=== PATIENT | female | born 1995 | race Caucasian/White ===

== ENCOUNTER 2020-05-02 16:48 | Emergency (ER) | payer OTHER, SELFPAY ==
--- NOTE | ~2020-05-02 | CT_ITS ---
EXAMINATION: CT abdomen pelvis w con EXAM DATE: 05/02/2020 18:58 INDICATION: Abdominal pain, nausea and vomiting. TECHNIQUE: Spiral CT of the abdomen and pelvis was performed following intravenous injection of 100 m L Omnipaque 350. Axial, coronal and sagittal images were reviewed. The dose-length product (DLP) fo r this examination was 194.71 mGy-cm. The exposure was tailored according to patient size (auto mA e xposure control), and iterative reconstruction (ASIR) was used as additional dose reduction technique . There is no prior study for comparison. FINDINGS: The liver, spleen, adrenal glands and pancreas are unremarkable. Gallbladder is unremarkab le. No biliary obstruction. Portal and splenic veins are patent. Kidneys enhance symmetrically. T here is no hydronephrosis. The uterus is unremarkable. The bladder is unremarkable. There is no retroperitoneal or pelvic lymphadenopathy. The appendix is not positively visualized. There is no pericecal inflammatory change to suggest appe ndicitis. The stomach and small bowel are unremarkable. There is colonic fluid, correlate for diar jimmie. No free intraperitoneal gas. The heart is normal in size. There are no pericardial or pleu ral effusions. The lung bases are unremarkable. Mild lumbar levoscoliosis. IMPRESSION: Colonic fluid, correlate for diarrhea. Reviewed, dictated and finalized at location [facility].
[2020-05-02 16:54] VITALS: BP 129/85; PULSE 120; RESP 19; TEMP 36.4; O2SAT 97
[2020-05-02 17:09] LABS: Basophils Percent Auto 0.2 % (0.2-1.2); Eosinophils Absolute Auto 0.4 K/mm3 (0-0.3); Eosinophils Percent Auto 2.8 % (0-4.4); Hematocrit 42.8 % (37.0-47.0); Hemoglobin 14.3 g/dL (12.0-15.0); Immature Granulocyte Absolute 0.05 K/mm3 (0.00-0.031); Immature Granulocyte Percent A 0.4 % (0-0.5); Lymphocytes Absolute Auto 1.49 K/mm3 (0.9-3.2); Lymphocytes Percent Auto 11.5 % (18.3-44.2); Mean Corpuscular HGB Conc 33.4 g/dl (32-36); Mean Corpuscular Hemoglobin 30.1 pg (26-34); Mean Corpuscular Volume 90.1 fl (80-100); Monocytes Absolute Auto 0.7 K/mm3 (0.1-0.6); Monocytes Percent Auto 5.7 % (2.6-8.5); Neutrophils Absolute Auto 10.3 K/mm3 (1.3-6.7); Neutrophils Percent Auto 79.4 % (45.5-73.1); Platelet Count Result 252 k/mm3 (150-375); Red Blood Count 4.75 M/mm3 (4.2-5.4); Red Cell Distribution Width 12.5 % (11.5-14.5)
[2020-05-02 17:15] LABS: Add Urine Microscopic? YES; Appearance Urine Cloudy (Clear); Bacteria Urine Trace /hpf; Bilirubin Urine Negative (Negative); Blood Urine Negative (Negative); Color Urine Yellow (Yellow); Glucose Urine UA Negative (Negative); Ketones Urine 2+ mg/dL (Negative); Leukocyte Esterase Ur 2+ LEU/UL (Negative); Mucus Urine Heavy /lpf; Nitrate Urine Negative (Negative); Protein Urine 2+ mg/dL (Negative); Squamous Epithelial Cell Urine Many /hpf (Few); Urobilinogen Urine Negative mg/dL (<2.0)
[2020-05-02 17:21] LABS: Alanine Aminotransferase 16 U/L (4-35); Albumin Level 4.8 g/dL (3.5-5.1); Alkaline Phosphatase 72 U/L (38-126); Anion Gap 11 mmol/L (8-16); Aspartate Amino Transferase 27 U/L (14-36); Bilirubin,Total 0.4 mg/dL (0.2-1.3); Blood Urea Nitrogen 11 mg/dL (7-17); Calcium 9.5 mg/dL (8.4-10.2); Carbon Dioxide 24 mmol/L (22-30); Chloride 103 mmol/L (98-107); Estimated CRCL calculation 86 ml/min; Estimated Glomerular Filt Rate > 60; Glucose 117 mg/dL (65-105); Lipase 40 U/L (23-300); Potassium 3.7 mmol/L (3.4-5.0); Sodium 138 mmol/L (137-145)
--- NOTE | 2020-05-02 17:58 | ED.NAVMDI ---
HPI - Nausea/Vomiting/Diarrhea General Chief complaint: Nausea/Vomiting/Diarrhea Stated complaint: vomiting Time Seen by Provider: 05/02/20 17:57 Source: patient and family Mode of arrival: ambulatory Limitations: no limitations History of Present Illness HPI Narrative: 25 years old white female presents with vomiting started last night x2. Went to sleep woke up at 10 AM with frequent diarrhea about 2-3 times. Then restarted vomiting again up to 6 times. Currently complaining of mid abdominal pain. History of IBS. Patient denies any fever, chills or exposure to anybody have similar symptoms. Related Data Home Medications Medication Instructions Recorded Confirmed norgestimate-ethinyl estradiol tablet 05/02/20 [Estarylla] venlafaxine mg PO 05/02/20 Allergies Allergy/AdvReac Type Severity Reaction Status Date / Time aspirin Allergy Unknown N/V, Verified 05/02/20 17:02 MIGRAINE cefaclor Allergy Unknown unknown Verified 05/02/20 17:02 oseltamivir AdvReac Severe vomiting Verified 05/02/20 17:02 acetaminophen AdvReac Unknown Liver Verified 05/02/20 17:02 issues Review of Systems Review of Systems: Narrative: CONSTITUTIONAL: Denies fever, chills, or sweats. EYES: Denies visual changes, redness, or discharge. ENT: Denies rhinorrhea, congestion, sore throat, or otalgia. CARDIOVASCULAR: Denies chest pain, palpitations, or edema. RESPIRATORY: Denies cough or dyspnea. GASTROINTESTINAL: Denies abdominal pain, nausea, vomiting, or diarrhea. GENITOURINARY: Denies dysuria or hematuria. SKIN: Denies rash or itching. MUSCULOSKELETAL: Denies back pain, joint pain, or myalgia. NEUROLOGIC: Denies headache, numbness, or weakness. PSYCHIATRIC: Denies anxiety or depression. PMFSH Past Medical History Medical History (Updated 05/02/20 @ 19:38 by Svitlana Roy MD) IBS (irritable bowel syndrome) Social History Social History Gender identity (if verbalized by the patient): Female Exam Narrative: Exam Narrative: General appearance: Well-developed, well-nourished Skin: Normal color Head: Normocephalic, nontraumatic Eyes: Clear conjunctiva ENT: Oropharynx normal, ears normal, nose normal Neck: Supple, nontender Chest and respiratory: Airway patent, no respiratory distress, no accessory muscle use Heart: Regular rate/rhythm Abdomen: Soft, mild diffuse mid abdomen tenderness, no organomegaly, quiet bowel sounds Vascular: Normal peripheral pulses, normal capillary refill. Musculoskeletal: Normal range of motion, nontender back Neurologic: Alert and oriented ?3, [employer] O[employer] is normal as tested, no gross motor deficit Course Course Emergency Course: Stable Vital Signs Vital signs: Vital Signs Temperature 36.4 C 05/02/20 16:54 Pulse Rate 120 H 05/02/20 16:54 Respiratory Rate 05/02/20 16:54 Blood Pressure 129/85 05/02/20 16:54 Pulse Oximetry 97 05/02/20 16:54 Temperature 36.4 C 05/02/20 16:54 Pulse Rate 120 H 05/02/20 16:54 Respiratory Rate 05/02/20 16:54 Blood Pressure 129/85 05/02/20 16:54 Pulse Oximetry 97 05/02/20 16:54 MDM - Nausea/Vomiting/Diarrhea MDM Narrative Medical decision making narrative: Gastroenteritis, IBS my concern. IV fluid, labs, CT abdomen and pelvis with IV contrast ordered. Further plan to follow. Lab Data Result diagrams: 05/02/20 17:02 05/02/20 17:02 Labs: Lab Results 05/02/20 05/02/20 05/02/20 Range/Units 17:00 17:02 17:02 WBC 13.0 H (4.5-10.0) K/mm3 RBC 4.75 (4.2-5.4) M/mm3 Hgb 14.3 (12.0-15.0) g/dL Hct 42.8 (37.0-47.0) % MCV 90.1 (80-100) fl MCH 30.1 (26-34) pg MCHC 33.4 (32-36) g/dl RDW
[2020-05-02] MEDS: ONDANSETRON INJ 4 MG/2 ML VIAL (18:15)
[2020-05-02] MEDS: SODIUM CHLORIDE 0.9% IV 1,000 ML 999 ML IV CONT (18:15)
--- NOTE | 2020-05-02 18:46 | PC.NURSE ---
pt to CT scan via stretcher
[2020-05-02] MEDS: MORPHINE SULFATE 4 MG/ML INJ IV PUSH (19:14)
[2020-05-02] MEDS: ONDANSETRON INJ 4 MG/2 ML VIAL IV PUSH (19:15)
[2020-05-02 20:19] VITALS: BP 118/77; PULSE 97; RESP 17; O2SAT 98
== END 2020-05-02 20:21 | disposition home or self-care (01) ==
PROVIDERS: Emergency Provider Emergency Medicine; PCP Family Medicine
DX: K52.9 Noninfective gastroenteritis and colitis, unspecified (principal); K58.9 Irritable bowel syndrome, unspecified
CPT/HCPCS: 36415; 74177; 80053; 81001; 81025; 83690; 85025; 87086; 87088; 96361; 96374; 96375; 96376; 99284; J2270; J2405; J7030; Q9967

== ENCOUNTER 2020-05-04 17:49 | Emergency (ER) | payer OTHER, SELFPAY ==
[2020-05-04 17:57] VITALS: BP 109/82; PULSE 89; RESP 16; TEMP 36.6; O2SAT 98
[2020-05-04 18:20] LABS: Basophils Percent Auto 0.3 % (0.2-1.2); Eosinophils Absolute Auto 0.1 K/mm3 (0-0.3); Eosinophils Percent Auto 0.8 % (0-4.4); Hematocrit 40.1 % (37.0-47.0); Hemoglobin 13.8 g/dL (12.0-15.0); Immature Granulocyte Absolute 0.04 K/mm3 (0.00-0.031); Immature Granulocyte Percent A 0.4 % (0-0.5); Lymphocytes Absolute Auto 1.45 K/mm3 (0.9-3.2); Lymphocytes Percent Auto 15.1 % (18.3-44.2); Mean Corpuscular HGB Conc 34.4 g/dl (32-36); Mean Corpuscular Hemoglobin 30.4 pg (26-34); Mean Corpuscular Volume 88.3 fl (80-100); Mean Platelet Volume 10.2 fl (7.4-10.4); Monocytes Absolute Auto 0.9 K/mm3 (0.1-0.6); Monocytes Percent Auto 9.1 % (2.6-8.5); Neutrophils Absolute Auto 7.1 K/mm3 (1.3-6.7); Neutrophils Percent Auto 74.3 % (45.5-73.1); Platelet Count Result 233 k/mm3 (150-375); Red Blood Count 4.54 M/mm3 (4.2-5.4); Red Cell Distribution Width 12.7 % (11.5-14.5); White Blood Count 9.6 K/mm3 (4.5-10.0)
[2020-05-04 18:34] LABS: Alanine Aminotransferase 14 U/L (4-35); Albumin Level 4.8 g/dL (3.5-5.1); Alkaline Phosphatase 67 U/L (38-126); Anion Gap 11 mmol/L (8-16); Aspartate Amino Transferase 25 U/L (14-36); Bilirubin,Total 0.4 mg/dL (0.2-1.3); Blood Urea Nitrogen 6 mg/dL (7-17); Calcium 9.5 mg/dL (8.4-10.2); Carbon Dioxide 23 mmol/L (22-30); Chloride 103 mmol/L (98-107); Estimated CRCL calculation 99 ml/min; Estimated Glomerular Filt Rate > 60; Glucose 115 mg/dL (65-105); Lipase 61 U/L (23-300); Potassium 3.5 mmol/L (3.4-5.0); Sodium 137 mmol/L (137-145)
--- NOTE | 2020-05-04 18:57 | ED.ABDPAIN ---
HPI - Abdominal Pain General Chief Complaint: Abdominal Pain <Kaden Mcknight PA-C - Last Filed: 05/04/20 19:04> Stated Complaint: Abd Pain <Kaden Mcknight PA-C - Last Filed: 05/04/20 19:04> Time Seen by Provider: 05/04/20 17:54 <Kaden Mcknight PA-C - Last Filed: 05/04/20 19:04> Source: patient <RUSTAM Dennison Last Filed: 05/04/20 19:04> Mode of arrival: ambulatory <RUSTAM Dennison Last Filed: 05/04/20 19:04> Limitations: no limitations <Kaden Mcknight PA-C - Last Filed: 05/04/20 19:04> History of Present Illness HPI narrative: Patient presents for reevaluation after being in emergency department on 05-02-20 for epigastric and lower abdominal discomfort. Patient states that after leaving the emergency department on 05-02-20 she was discharged with Zofran and Imodium she had not had a bowel movement until drinking MiraLAX today in which she had a bowel movement. Patient states that she notices pain in her epigastric as well as her lower abdominal regions so her father told her to report back to the emergency department for evaluation since her primary care in [place] could not see her today. Patient reports having an episode of vomiting today but denies other episodes of vomiting or diarrhea. Patient has not had any fever, chills, chest pain, shortness of breath, blood in her vomit or stool nor mucus. <Kaden Mcknight PA-C - Last Filed: 05/04/20 19:04> Related Data Home Medications: Home Medications Medication Instructions Recorded Confirmed norgestimate-ethinyl estradiol tablet 05/02/20 [Estarylla] venlafaxine mg PO 05/02/20 <RUSTAM Dennison Last Filed: 05/04/20 19:04> Allergies/Adverse Reactions: Allergies Allergy/AdvReac Type Severity Reaction Status Date / Time aspirin Allergy Unknown N/V, Verified 05/04/20 17:52 MIGRAINE cefaclor Allergy Unknown unknown Verified 05/04/20 17:52 oseltamivir AdvReac Severe vomiting Verified 05/04/20 17:52 acetaminophen AdvReac Unknown Liver Verified 05/04/20 17:52 issues <Kaden Mcknight PA-C - Last Filed: 05/04/20 19:04> Review of Systems Review of Systems: Narrative: CONSTITUTIONAL: Denies fever, chills, or sweats. EYES: Denies visual changes, redness, or discharge. ENT: Denies rhinorrhea, congestion, sore throat, or otalgia. CARDIOVASCULAR: Denies chest pain, palpitations, or edema. RESPIRATORY: Denies cough or dyspnea. GASTROINTESTINAL: Reports abdominal pain, nausea, vomiting, denies diarrhea. GENITOURINARY: Denies dysuria or hematuria. SKIN: Denies rash or itching. MUSCULOSKELETAL: Denies back pain, joint pain, or myalgia. NEUROLOGIC: Denies headache, numbness, dizziness, or weakness. PSYCHIATRIC: Denies anxiety or depression. <Kaden Mcknight PA-C - Last Filed: 05/04/20 19:04> [facility] Past Medical History Medical History: Medical History (Updated 05/04/20 @ 19:02 by Kaden Mcknight PA-C) IBS (irritable bowel syndrome) <Kaden Mcknight PA-C - Last Filed: 05/04/20 19:04> Social History Social History: Social History Gender identity (if verbalized by the patient): Female <Kaden Mcknight PA-C - Last Filed: 05/04/20 19:04> Exam Narrative: Exam Narrative: GENERAL: Well-appearing, well-nourished, and in no acute distress. Patient talking normally. HEAD: Normocephalic, atraumatic. EYES: PERRLA and EOMI. ENT: Nares clear, no rhinorrhea or epistaxis. Mucous membranes moist. Oropharynx without tonsillar hypertrophy exudate or other lesions. Bilateral TMs pearly yanez nonbulging NECK: Supple. No adenopathy or masses. CHEST: Clear to auscultation. No respiratory distress. No wheezes rales or rhonchi HEART: Regular rate and rhythm. ABDOMEN: Soft, diffuse mild tenderness more tender over epigastric area and lower right quadrants, nondistended, normal bowel sounds. EXTREMITIES: Normal range of motion. No edema. SKIN: Warm, dry, no rash. NEURO: No focal deficits.
[2020-05-04] MEDS: LIDOCAINE HCL 2% VISC SOLN 15 ML UDC 20 ML PO (19:07)
[2020-05-04] MEDS: MAG HYDROX/AL HYDROX/SIMETH 30 ML UDC PO (19:07)
[2020-05-04] MEDS: PANTOPRAZOLE SODIUM IV 40 MG VIAL IV PUSH (19:08)
[2020-05-04 19:57] VITALS: BP 121/79; PULSE 93; RESP 18; O2SAT 100
[2020-05-04] MEDS: ONDANSETRON INJ 4 MG/2 ML VIAL IV PUSH (19:57)
== END 2020-05-04 20:05 | disposition home or self-care (01) ==
PROVIDERS: Physician Assistant; Emergency Provider General Practice; PCP Family Medicine
DX: K52.9 Noninfective gastroenteritis and colitis, unspecified (principal); K58.9 Irritable bowel syndrome, unspecified
CPT/HCPCS: 36415; 80053; 83690; 85025; 96374; 96375; 99284; A9270; C9113; J2405

== ENCOUNTER 2020-05-15 12:26 | Outpatient (CLI) | payer OTHER, SELFPAY ==
[2020-05-15 13:36] LABS: Basophils Percent Auto 0.7 % (0.2-1.2); Eosinophils Absolute Auto 0.3 K/mm3 (0-0.3); Hematocrit 39.8 % (37.0-47.0); Hemoglobin 13.7 g/dL (12.0-15.0); Immature Granulocyte Absolute 0.01 K/mm3 (0.00-0.031); Immature Granulocyte Percent A 0.2 % (0-0.5); Lymphocytes Absolute Auto 2.07 K/mm3 (0.9-3.2); Lymphocytes Percent Auto 35.4 % (18.3-44.2); Mean Corpuscular HGB Conc 34.4 g/dl (32-36); Mean Corpuscular Hemoglobin 29.8 pg (26-34); Mean Corpuscular Volume 86.7 fl (80-100); Mean Platelet Volume 9.1 fl (7.4-10.4); Monocytes Absolute Auto 0.4 K/mm3 (0.1-0.6); Monocytes Percent Auto 7.5 % (2.6-8.5); Neutrophils Percent Auto 51.2 % (45.5-73.1); Platelet Count Result 359 k/mm3 (150-375); Red Blood Count 4.59 M/mm3 (4.2-5.4); Red Cell Distribution Width 12.2 % (11.5-14.5); White Blood Count 5.8 K/mm3 (4.5-10.0)
[2020-05-15 13:40] LABS: Add Urine Microscopic? YES; Appearance Urine Clear (Clear); Bilirubin Urine Negative (Negative); Blood Urine Negative (Negative); Color Urine Yellow (Yellow); Glucose Urine UA Negative (Negative); Ketones Urine 1+ mg/dL (Negative); Leukocyte Esterase Ur 2+ LEU/UL (NEGATIVE); Mucus Urine Few /lpf; Nitrate Urine Negative (Negative); Protein Urine Negative (Negative); RBC Urine 0-2 /hpf (0-2); Specific Grav Ur 1.024 (1.001-1.035); Squamous Epithelial Cell Urine Many /hpf (Few); Urobilinogen Urine Negative mg/dL (<2.0); WBC Urine 21-30 /hpf (0-3)
[2020-05-15 13:49] LABS: Alanine Aminotransferase 15 U/L (4-35); Albumin Level 4.4 g/dL (3.5-5.1); Alkaline Phosphatase 68 U/L (38-126); Amylase 76 U/L (30-110); Anion Gap 8 mmol/L (8-16); Aspartate Amino Transferase 24 U/L (14-36); Bilirubin,Total 0.5 mg/dL (0.2-1.3); Blood Urea Nitrogen 14 mg/dL (7-17); Calcium 9.8 mg/dL (8.4-10.2); Carbon Dioxide 24 mmol/L (22-30); Chloride 105 mmol/L (98-107); Estimated Glomerular Filt Rate > 60; Glucose 92 mg/dL (65-105); Lipase 69 U/L (23-300); Potassium 4.3 mmol/L (3.4-5.0); Sodium 137 mmol/L (137-145)
== END 2020-05-15 12:27 | disposition home or self-care (01) ==
LOC: ANHLAB 12:31
PROVIDERS: PCP Family Medicine; Visit Provider Family Medicine
DX: R10.817 Generalized abdominal tenderness (principal); J02.9 Acute pharyngitis, unspecified
CPT/HCPCS: 36415; 80053; 81001; 82150; 83690; 85025; 87081; 87880

== ENCOUNTER 2020-05-17 14:53 | Outpatient (CLI) | payer OTHER, SELFPAY ==
[2020-05-19 14:17] LABS: SARS-CoV-2 RNA PCR Negative
== END 2020-05-17 14:54 | disposition home or self-care (01) ==
LOC: CHSIMG 14:57
PROVIDERS: PCP Family Medicine; Visit Provider Family Medicine
DX: J02.9 Acute pharyngitis, unspecified (principal)
CPT/HCPCS: 87635; C9803; U0003

== ENCOUNTER 2020-11-16 14:49 | Outpatient (CLI) | payer OTHER, SELFPAY ==
[2020-11-16 17:10] LABS: SARS-CoV-2 Ag Negative (Negative)
[2020-11-16 17:59] LABS: SARS-CoV-2 RNA PCR Negative (Negative)
== END 2020-11-16 14:50 | disposition home or self-care (01) ==
LOC: CHSLAB 14:51
PROVIDERS: PCP Family Medicine; Visit Provider Nurse Practitioner Family
DX: J02.9 Acute pharyngitis, unspecified (principal); Z20.822 Contact with and (suspected) exposure to COVID-19
CPT/HCPCS: 87081; 87426; 87880; C9803; U0003; U0005

== ENCOUNTER 2021-02-19 14:46 | Outpatient (CLI) | payer OTHER, SELFPAY ==
[2021-02-19 15:01] LABS: Basophils Absolute Auto 0.02 K/mm3 (0.00-0.10); Basophils Percent Auto 0.3 % (0.0-1.0); Eosinophils Absolute Auto 0.14 K/mm3 (0.02-0.50); Eosinophils Percent Auto 1.9 % (1.0-6.0); Hemoglobin 11.6 g/dL (12.0-15.0); Immature Granulocyte Absolute 0.02 K/mm3 (0.00-0.00); Immature Granulocyte Percent A 0.3 % (0.0-0.0); Lymphocytes Absolute Auto 1.31 K/mm3 (1.10-4.50); Lymphocytes Percent Auto 17.4 % (18.0-42.0); Mean Corpuscular HGB Conc 33.1 g/dL (32.0-36.0); Mean Corpuscular Hemoglobin 29.8 pg (27.0-31.0); Monocytes Absolute Auto 1.04 K/mm3 (0.10-0.90); Monocytes Percent Auto 13.8 % (2.0-11.0); Neutrophils Percent Auto 66.3 % (50.0-70.0); Platelet Count Result 163 K/mm3 (150-420); Red Blood Count 3.89 M/mm3 (4.20-5.40); Red Cell Distribution Width 13.2 % (11.6-14.4); White Blood Count 7.5 K/mm3 (4.8-10.8)
[2021-02-19 15:10] LABS: Monoscreen Negative (Negative); Negative Monotest Control Negative (Negative); Positive Monotest Control Positive (Positive)
[2021-02-19 15:38] LABS: Alanine Aminotransferase 23 U/L (14-59); Albumin Level 3.9 g/dL (3.4-5.0); Alkaline Phosphatase 59 U/L (46-116); Anion Gap 11 mmol/L (8-16); Aspartate Amino Transferase 16 U/L (15-37); Bilirubin,Total 0.3 mg/dL (0.00-1.00); Blood Urea Nitrogen 11 mg/dL (7-18); Calcium 9.1 mg/dL (8.5-10.1); Carbon Dioxide 25 mmol/L (21-32); Chloride 103 mmol/L (98-108); Estimated Glomerular Filt Rate > 60; Glucose 84 mg/dL (70-99); Osmolality Calculated 286 mOsm/kg (285-295); Potassium 4.1 mmol/L (3.5-5.1); Sodium 139 mmol/L (136-145); Total Protein 6.7 g/dL (6.4-8.2)
[2021-02-22 21:19] LABS: EBV Nuclear Ab Interpretation Past; EBV Virus Capsid Ag IgM Ab <36.00 U/mL (<36.00)
== END 2021-02-19 14:47 | disposition home or self-care (01) ==
PROVIDERS: PCP Family Medicine; Visit Provider Nurse Practitioner Family
DX: J02.9 Acute pharyngitis, unspecified (principal); B99.9 Unspecified infectious disease
CPT/HCPCS: 80053; 85025; 86308; 86664; 86665; 87081; 87880

== ENCOUNTER 2021-08-20 18:54 | Emergency (ER) | payer OTHER, MEDICAID, SELFPAY ==
--- NOTE | ~2021-08-20 | XR_ITS ---
XR_[id number]_CR DATE: 08/20/2021 21:58 INDICATION: Neck stiffness. Neck pain radiating to left shoulder after cough TECHNIQUE: AP, open-mouth, odontoid and lateral views COMPARISON: None FINDINGS: Normal alignment of the cervical spine. No fracture or dislocation or locked facet or preve rtebral soft tissue swelling. Cervical interspaces are preserved. IMPRESSION: Negative Reviewed, dictated and finalized at [facility]. Reviewed, dictated and finalized at location [facility]. CUTTER IMPRESSION: Negative
[2021-08-20 18:56] VITALS: BP 135/87; PULSE 108; RESP 18; TEMP 36.7; O2SAT 100
--- NOTE | 2021-08-20 22:55 | ED.GENADULT ---
HPI - General Adult General Chief complaint: Back Pain/Injury Stated complaint: Back Pain Time Seen by Provider: 08/20/21 21:17 History of Present Illness HPI narrative: 26-year-old female presents emerge department for evaluation of left lateral neck pain. Patient states yesterday she was bending over and coughed at the same time causing a popping sensation at the base of the cervical spine. Patient states since that time she has had left-sided neck pain into her left shoulder. Patient denies any associated numbness or weakness. Patient did have follow-up with the urgent care and was provided prednisone, muscle relaxants and recommended to take ibuprofen. Patient was also told to present to the emergency department if she had any worsening symptoms or if her pain did not improve. Patient did not yet take the steroid but states that she was still having persistent pain so she presented to the emergency department for. Patient does report left sided neck and shoulder pain but denies any associated numbness or weakness. Related Data Home Medications Medication Instructions Recorded Confirmed norgestimate-ethinyl estradiol tablet 05/02/20 [Estarylla] venlafaxine mg PO 05/02/20 Allergies Allergy/AdvReac Type Severity Reaction Status Date / Time aspirin Allergy Unknown N/V, Verified 08/20/21 19:01 MIGRAINE cefaclor Allergy Unknown unknown Verified 08/20/21 19:01 oseltamivir AdvReac Severe vomiting Verified 08/20/21 19:01 acetaminophen AdvReac Unknown Liver Verified 08/20/21 19:01 issues Review of Systems Review of Systems: CONSTITUTIONAL: Denies fever, chills, or sweats. EYES: Denies visual changes, redness, or discharge. ENT: Denies rhinorrhea, congestion, sore throat, or otalgia. CARDIOVASCULAR: Denies chest pain, palpitations, or edema. RESPIRATORY: Denies cough or dyspnea. GASTROINTESTINAL: Denies abdominal pain, nausea, vomiting, or diarrhea. GENITOURINARY: Denies dysuria or hematuria. SKIN: Denies rash or itching. MUSCULOSKELETAL: Reproducible left-sided neck and anterior shoulder pain NEUROLOGIC: Denies headache, numbness, or weakness. PSYCHIATRIC: Denies anxiety or depression. [facility] Past Medical History Medical History (Updated 08/20/21 @ 23:09 by Moncho Angeles MD) IBS (irritable bowel syndrome) Social History Social History Gender identity (if verbalized by the patient): Female Exam Narrative: APPEARANCE: Well appearing, no pain in distress, well-nourished. Head normocephalic atraumatic. EYES: PERRLA/EOMI, conjunctivae very clear. THROAT: Pharynx clear, no exudate. NECK: Supple. No adenopathy, no masses. Paraspinal muscular tenderness at cervical spine into left shoulder. No palpated step-offs or deformities. Tenderness is muscular. Limited range of motion of neck due to muscular pain. RESPIRATORY: Airway patent, respirations nonlabored. Clear to auscultation bilaterally, no rales, rhonchi, wheezing. CARDIOVASCULAR: Regular rate and rhythm without murmurs rubs or gallops. ABDOMINAL: Soft, nontender, nondistended, no hepatosplenomegally MUSCULOSKELETAl: Moves all extremities. Strength/ROM intact, No edema, No calf tenderness. Neck exam as described above NEURO: Alert. Cranial nerves II through XII intact. Good gait. Good coordination SKIN: Warm, dry. Normal Color PSYCHIATRIC: Normal affect/mood. Course Course Emergency Course: Patient was updated on the plan for imaging. Patient is also pending the results of her imaging. Patient was encouraged to continue taking her previous prescriptions including prednisone and muscle relaxant and ibuprofen for pain control. Patient was comfortable with the plan for discharge and close follow-up. Vital Signs Vital signs: Vital Signs Temperature 98.1 F 08/20/21 18:56 Pulse Rate 108 H 08/20/21 18:56 Respiratory Rate 18 08/20/21 18:56 Blood Pressure 135/87 08/20/21 18:56 Pulse Oximetry 100 08/20/21 18:56 Temperature 98.
[2021-08-20 23:16] VITALS: BP 115/65; PULSE 73; RESP 16; TEMP 36.8; O2SAT 100
== END 2021-08-20 23:20 | disposition home or self-care (01) ==
PROVIDERS: Emergency Provider Emergency Medicine; PCP Family Medicine
DX: M54.12 Radiculopathy, cervical region (principal); K58.9 Irritable bowel syndrome, unspecified
CPT/HCPCS: 72040; 99283

== ENCOUNTER 2022-05-28 09:47 | Outpatient (CLI) | payer BC, SELFPAY ==
[2022-05-28 11:09] LABS: Strep Group A RT-PCR Not Detected (Negative)
[2022-05-28 11:11] LABS: Influenza A QL RT-PCR Negative (Negative); Influenza B QL RT-PCR Negative (Negative); SARS-CoV-2 RNA PCR Negative (Negative)
== END 2022-05-28 09:48 | disposition home or self-care (01) ==
LOC: CHSLAB 09:51
PROVIDERS: PCP Family Medicine; Visit Provider Family Medicine
DX: J06.9 Acute upper respiratory infection, unspecified (principal); Z20.822 Contact with and (suspected) exposure to COVID-19
CPT/HCPCS: 87502; 87651; C9803; U0003; U0005

== ENCOUNTER 2022-06-18 10:09 | Outpatient (CLI) | payer BC, SELFPAY ==
[2022-06-18 10:23] LABS: Basophils Absolute Auto 0.03 K/mm3 (0.00-0.10); Basophils Percent Auto 0.4 % (0.0-1.0); Eosinophils Percent Auto 5.2 % (1.0-6.0); Hematocrit 38.4 % (35.0-49.0); Hemoglobin 12.9 g/dL (12.0-15.0); Immature Granulocyte Absolute 0.02 K/mm3 (0.00-0.00); Immature Granulocyte Percent A 0.3 % (0.0-0.0); Lymphocytes Percent Auto 19.6 % (18.0-42.0); Mean Corpuscular HGB Conc 33.6 g/dL (32.0-36.0); Mean Corpuscular Volume 89.3 fL (78.0-102.0); Monocytes Absolute Auto 0.63 K/mm3 (0.10-0.90); Monocytes Percent Auto 8.2 % (2.0-11.0); Neutrophils Absolute Auto 5.1 K/mm3 (1.7-7.2); Neutrophils Percent Auto 66.3 % (50.0-70.0); Platelet Count Result 273 K/mm3 (150-420); Red Cell Distribution Width 12.8 % (11.6-14.4); White Blood Count 7.7 K/mm3 (4.8-10.8)
[2022-06-18 10:24] LABS: Appearance Urine Clear (Clear); Bilirubin Urine Negative (Negative); Blood Urine Negative (Negative); Glucose Urine UA Negative (Negative); Ketones Urine 1+ (Negative); Leukocyte Esterase Ur Negative (Negative); Nitrate Urine Negative (Negative); Protein Urine Negative (Negative); Specific Grav Ur 1.025 (1.010-1.020); Urobilinogen Urine 0.2 mg/dL (0.2-1.0)
[2022-06-18 10:30] LABS: Add Urine Microscopic? YES; Bacteria Urine Trace /hpf; Color Urine Light Yellow (Yellow); Mucus Urine Moderate /lpf; RBC Urine None seen /hpf (0-2); Squamous Epithelial Cell Urine Moderate /hpf (Few); WBC Urine None seen /hpf (0-3)
[2022-06-18 11:02] LABS: Alanine Aminotransferase 15 U/L (14-59); Albumin Level 4.1 g/dL (3.4-5.0); Alkaline Phosphatase 57 U/L (46-116); Amylase 53 U/L (25-115); Anion Gap 9 mmol/L (8-16); Aspartate Amino Transferase 16 U/L (15-37); Bilirubin,Total 0.4 mg/dL (0.00-1.00); Blood Urea Nitrogen 13 mg/dL (7-18); Carbon Dioxide 25 mmol/L (21-32); Chloride 106 mmol/L (98-108); Estimated Glomerular Filt Rate > 60; Glucose 87 mg/dL (70-99); Lipase 61 U/L (73-393); Osmolality Calculated 289 mOsm/kg (285-295); Potassium 4.1 mmol/L (3.5-5.1); Sodium 140 mmol/L (136-145); Thyroid Stimulating Hormone 2.24 uIU/mL (0.36-3.74); Total Protein 7.2 g/dL (6.4-8.2)
[2022-06-18 11:23] LABS: Pregnancy On Board Control Positive; Urine Pregnancy Test Negative
== END 2022-06-18 10:10 | disposition home or self-care (01) ==
LOC: CHSLAB 10:11
PROVIDERS: PCP Family Medicine; Visit Provider Family Medicine
DX: R10.11 Right upper quadrant pain (principal)
CPT/HCPCS: 36415; 80053; 81001; 81025; 82150; 83690; 84443; 85025

== ENCOUNTER 2024-11-01 14:14 | Outpatient (CLI) | payer BC, SELFPAY ==
--- NOTE | ~2024-11-01 | XR_ITS ---
EXAMINATION: XR chest 2V Exam Date/Time: 11/01/2024 14:22 CDT HISTORY: PAIN IN R CLAVICLE Comparison: 04/10/2013. RESULT: Lines, tubes, and devices: None. Lungs and pleura: Clear. Cardiomediastinal silhouette: Stable. Other: No acute osseous or upper abdominal finding. IMPRESSION: No acute cardiopulmonary process. Reviewed, dictated and finalized at location K.
--- OUTSIDE RECORDS SUMMARY | 2024-11-01 16:36 | XMS_ITS | Encounter Summary ---
Author Organization [facility] Address [address] [place] [address] Phone Care Team Providers Care Medical Data Analyst Name Role Phone David Jacobo MD Primary Care Provider Encounter Details Date Type Department Care Team (Late st Contact Info) Description 05/07/2023 Telephone [facility] Med Surg [address] [place] [phone] Sister Belia Diane, RN [place] Social History Tobacco Use Types Packs/Day Years Used Date Smoking Tobacco: Former Cigarettes Smokeless Tobacco: Never Alcohol Use Standard Drinks/Week Comments Yes 0 (1 standard drink = 0.6 oz pur e alcohol) monthly mix drinks Comments Unknown Sex and Gender Information Value Date Recorded Sex Assigned at Not on file Legal Sex Female 12:02 AM CDT Gender Identity Not on file Sexual Orientation Not on file COVID-19 Exposure Response Date Recorded In the last 10 days, have yo u been in contact with someone who was confirmed or suspected to have Coronavirus/COVID-19? No / Unsure 05/04/2023 7:38 PM CDT documented as of this encounter Plan of Treatment Not on file documented as of this encounter Visit Diagnoses Not on filedocumented in this encounter Additional Health Concerns Infection Onset Date Last Indicated Resolved Time COVID - 19 05/04/2023 05/04/2023 05/14/2023 12:1 6 AM CDT COVID - 19 05/20/2023 05/20/2023 05/30/2023 12:1 6 AM CDT Respiratory Rule-Out 05/20/2023 05/20/2023 023 12:16 AM CDT COVID - 19 09/12/2023 09/12/2023 09/22/2023 12:1 6 AM [employer] COVID - 19 10/06/2023 10/09/2023 10/19/2023 12:1 6 AM [employer] COVID - 19 06/10/2024 06/10/2024 06/10/2024 3:48 PM CDT COVID - 19 08/29/2024 08/29/2024 08/29/2024 8:11 AM [employer] COVID - 19 09/21/2024 09/21/2024 09/21/2024 11:0 2 AM [employer] COVID - 19 09/22/2024 09/22/2024 10/02/2024 12:1 6 AM [employer] documented as of this encounter Care Teams Medical Data Analyst Relationship Specialty Start Date End Date David Jacobo MD [address] [place] [address] PCP - General Pediatrics 02/25/16 documented as of this encounter
--- OUTSIDE RECORDS SUMMARY | 2024-11-01 16:37 | XMS_ITS | Data Portability ---
Author Organization [facility] Address [address] [place] [address] Assessment Encounter Date Assessment Date Assessment LastModified by Organization Details LastModified Time 09/16/2017 09/16/2017 1. Counseled regarding prevention of STD's , condom use and prevention. 2. Counseled regarding contraceptive options, risk factors and side effects. 3. Advised avoidance of tobacco, alcohol, and drugs . 4. Counseled regarding folic acid supplementation, calcium needs and prevention of osteoporosis . 5. BSE reviewed and recommended. 6. Follow up in one year or sooner if needed. [email or web address] Not available 09/16/2017 10:45:04 09/02/2018 09/02/2018 Serum hcg drawn today. will follow up pending results. Pt advised to start pnv while trying to conceive. Pt verbalized understanding. [email or web address] Not available 09/02/2018 14:19:23 Plan of Treatment Reminders Order Date Submit Date Provider Last Modified By Organization Details Last Modified Time Details Appointments None record ed. Lab vagina l pathog ens panel, LUCAS+pr obe, vagina l fluid 2023 024 [facility], [address] [facility], [facility] [address], [place], [address], 4 11:14:35 cytolo gy report , thin prep, smear or scrapi ng, cervic al or vagina l 2023 024 [facility], [address] [facility], [facility] [address], [place], [address], 4 16:13:14 HCG, intact + beta subuni t, quant, serum or plasma 2018 019 [facility], [address], [address], [place], [address], 9 07:16:16 pap, IG + reflex HR HPV 2017 018 [facility], [address], [address], [place], [address], 8 16:26:01 pregna ncy test, urine [address] [facility] In-Office Order, Internal Use Only DO Not Attach Compendium DO Not Attach Compendium, Do Not Delete/merge, [id number] 8 14:40:23 Referral None record ed. Procedures None record ed. Surgeries None record ed. Imaging None record ed. Medication Orders tercon azole 0.8 % vagina l cream 2023 024 [facility] #[id number], [address], [place], [id number], 4 14:52:48 Difluc an 150 mg tablet 2019 [facility], [address], [place], [id number], 4 14:12:18 Flagyl 500 mg tablet 2019 020 [facility] #[id number], [address], [place], [id number], 4 14:14:36 Sprint ec (28) 0.25 mg-35 mcg tablet 2019 020 [facility] #[id number], [address], [place], [id number], 14:43:48 Sprint ec (28) 0.25 mg-35 mcg tablet 2017 [id number], [address], [place], [place], [id number], 14:43:48 Patient TargetsNo targets recorded. Patient InstructionsNo instructions recorded. Reason for Referral None Reported. Results Created Date Observation Date Name Description Value Unit Range Abnormal Flag Note LastModifiedBy Organization Detail LastModifiedTime 09/16/19 18 09/18/2017 pap, IG + refle x HR HPV diagnosis: Ron MARIE FOR INTRA EPITH ELITATYANA Mcclendon AND MONY VERNON . Not Available [facility] ([facility]) [address] [place], [address], 09/18/2017 16:26:01 09/16/19 18 09/18/2017 pap, IG + refle x HR HPV specimen adequacy: Ron terrazas Satis facto ry for evalu ation . Endoc ervic al and/o r squam ous metap lasti c cells (endo cervi eileen compo nent) are prese nt. Not Available [facility] ([facility]) [address] [place], [address], 09/18/2017 16:26:01 09/16/19 18 09/18/2017 pap, IG + refle x HR HPV clinician provided ICD10: Ron terrazas Z01.4 19 Not Available [facility] ([facility]) [address] [place], [address], 09/18/2017 16:26:01 09/16/19 18 09/18/2017 pap, IG + refle x HR HPV performed by: Ron maurice Cytomk terrazas (ASCP ) Not Available [facility] ([facility]) [address] [place], [address], 09/18/2017 16:26:01 09/16/19 18 09/18/2017 pap, IG + refle x HR HPV . . Not Available [facility] ([facility]) [address] [place], [address], 09/18/2017 16:26:01 09/16/19 18 09/18/2017 pap, IG + refle x HR HPV note: Commen t The Pap smear is a scree sasha test desig betzaida to aid in the detec tion of carlos ligna nt and malig nant condi tions of the uteri ne cervi x. It is not a diagn ostic proce dure and shoul d not be used as the sole means of detec ting cervi eileen cance r. Both false -posi tive and false -nega tive repor ts do occur . Not Available [facility] ([facility]) [address] [facility], [place], [address], 09/18/2017 16:26:01 09/16/19 18 09/18/2017 pap, IG + refle x HR HPV test methodology: Commen t This liqui d based ThinP rep(R ) pap test was scree betzaida with the use of an image guide d systcory m. Not Available [facility] ([facility]) [address] [place], [address], 09/18/2017 16:26:01 09/16/19 18 09/18/2017 pap, IG + refle x HR HPV . Commen t The HPV DNA refle x crite kathleen were not met with this speci men resul t there fore, no HPV testi ng was perfo rmed. Not Available [facility] ([facility]) [address] [place], [address], 09/18/2017 16:26:01 09/16/19 18 09/18/2017 pap, IG + refle x HR HPV chlamydia, nuc. acid amp Negati ve negati ve Not Available [facility] ([facility]) [address] [place], [address], 09/18/2017 16:26:01 09/16/19 18 09/18/2017 pap, IG + refle x HR HPV gonococcus, nuc. acid amp Negati ve negati ve Not Available [facility] ([facility]) [address] [place], [address], 09/18/2017 16:26:01 09/16/19 18 09/16/2017 pregn david test, urine HCG negati ve Not Available In-Office Order Internal Use Only DO Not Attach Compendium DO Not Attach Compendium, Do Not Delete/merge, [id number] 09/16/2017 10:35:00 09/02/19 19 09/03/2018 HCG, intac t + beta subun it, quant , serum or plasm a HCG,beta subunit,qnt, serum <1 mIU/m L Femal e (Non- pregn ant) 0 - 5 (Post menop ausal ) 0 - 8 Femal e (Preg nant) Weeks of Gesta tion 3 6 - 71 4 10 - 750 5 217 - 5982 6 874 - 51857 7 2012 -6815 63 8 13680 -8464 71 9 556134 -2660 10 10 54674 -6493 77 12 22180 -9876 12 14 01624 - 50456 15 53261 - 67199 16 5495 - 43455 17 3537 - 14292 18 4627 - 37795 Sushil ECLIA metho dolog y Not Available [facility] ([facility]) [address] [place], [address], 09/03/2018 07:16:16 11/24/19 24 11/27/2023 NUSWA B VAGIN ITIS PLUS (VG+) atopobium vaginae Modera te - 1 score Not Available [facility] ([facility]) [address] [place], [address], 11/27/2023 11:14:35 11/24/19 24 11/27/2023 NUSWA B VAGIN ITIS PLUS (VG+) bvab 2 High - 2 score abnormal Not Available [facility] ([facility]) [address] [facility], [place], [address], 11/27/2023 11:14:35 11/24/19 24 11/27/2023 NUSWA B VAGIN ITIS PLUS (VG+) megasphaera 1 Low - 0 score Calcu late total score by janelle erazo the 3 indiv idual bacte rial vagin osis (BV) marke r score s toget her. Total score is inter prete d as follo ws: Total score 0-1: Indic ates the absen ce of BV. Total score 2: Indet ermin ate for BV. Addit ional clini eileen data shoul d be evalu ated to estab yunier a diagn osis. Total score 3-6: Indic ates the prese nce of BV. This test was devel oped and its perfo rmanc e gisela cteri stics deter mined by [facility]. It has not been clear ed or appro nguyễn by the Food and Drug Admin istra tion. Not Available [facility] ([facility]) [address] [facility], [place], [address], 11/27/2023 11:14:35 11/24/19 24 11/27/2023 NUSWA B VAGIN ITIS PLUS (VG+) anayeli albicans, LUCAS Negati ve negati ve Not Available [facility] ([facility]) [address] [facility], [place], [address], 11/27/2023 11:14:35 11/24/19 24 11/27/2023 NUSWA B VAGIN ITIS PLUS (VG+) anayeli glabrata, LUCAS Negati ve negati ve Not Available [facility] ([facility]) [address] [place], [address], 11/27/2023 11:14:35 11/24/19 24 11/27/2023 NUSWA B VAGIN ITIS PLUS (VG+) trich vag by LUCAS Negati ve negati ve Not Available [facility] ([facility]) [address] [place], [address], 11/27/2023 11:14:35 11/24/19 24 11/27/2023 NUSWA B VAGIN ITIS PLUS (VG+) chlamydia trachomatis, LUCAS Negati ve negati ve Not Available [facility] ([facility]) [address] [facility], [place], [address], 11/27/2023 11:14:35 11/24/19 24 11/27/2023 NUSWA B VAGIN ITIS PLUS (VG+) neisseria gonorrhoeae, LUCAS Negati ve negati ve Not Available [facility] ([facility]) [address] [facility], [place], [address], 11/27/2023 11:14:35 11/24/19 24 11/25/2023 IGP, APTIM A HPV, RFX 16/18 ,45 HPV aptima Negati ve negati ve This nucle ic acid ampli ficat ion test detec ts fourt een high- risk HPV types (16,1 8,31, 33,35 ,39,4 5,51, 52,56 ,58,5 9,66, 68) witho ut diffe renti ation . Not Available [facility] ([facility]) [address] [facility], [place], [address], 11/27/2023 16:13:14 11/24/19 24 11/27/2023 IGP, APTIM A HPV, RFX 16/18 ,45 diagnosis: Commen t NEGAT FRANK FOR INTRA EPITH ELIAL LESIO N OR MONY VERNON . Not Available [facility] ([facility]) [address] [facility], [place], [address], 11/27/2023 16:13:14 11/24/19 24 11/27/2023 IGP, APTIM A HPV, RFX 16/18 ,45 specimen adequacy: Commen t Satis facto ry for evalu ation . Endoc ervic al and/o r squam ous metap lasti c cells (endo cervi eileen compo nent) are prese nt. Not Available [facility] ([facility]) [address] [place], [address], 11/27/2023 16:13:14 11/24/19 24 11/27/2023 IGP, APTIM A HPV, RFX 16/18 ,45 clinician provided ICD10: Ron terrazas Z01.4 19 N89.8 Not Available [facility] ([facility]) [address] [place], [address], 11/27/2023 16:13:14 11/24/19 24 11/27/2023 IGP, APTIM A HPV, RFX 16/18 ,45 performed by: Ron ross, Nicholas terrazas (ASCP ) Not Available [facility] ([facility]) [address] [place], [address], 11/27/2023 16:13:14 11/24/19 24 11/27/2023 IGP, APTIM A HPV, RFX 16/18 ,45 . . Not Available [facility] ([facility]) [address] [place], [address], 11/27/2023 16:13:14 11/24/19 24 11/27/2023 IGP, APTIM A HPV, RFX 16/18 ,45 note: Ron terrazas The Pap smear is a scree sasha test desjuan huston to aid in the detec tion of carlos ligna nt and malig nant condi tions of the uteri ne cervi x. It is not a diagn ostic proce dure and shoul d not be used as the sole means of detec ting cervi eileen cance r. Both false -posi tive and false -nega tive repor ts do occur . Not Available [facility] ([facility]) [address] [facility], [place], [address], 11/27/2023 16:13:14 11/24/19 24 11/27/2023 IGP, APTIM A HPV, RFX 16/18 ,45 test methodology: Commen t This liqui d based ThinP rep(R ) pap test was keven huston with the use of an image guide cinthya schaffer Not Available [facility] ([facility]) [address] [place], [address], 11/27/2023 16:13:14 11/24/19 24 11/27/2023 IGP, APTIM A HPV, RFX 16/18 ,45 HPV genotype reflex Commen t Crite kathleen not met, HPV Genot ype not perfo rmed. Not Available [facility] ([facility]) [address] [facility], [place], [address], 11/27/2023 16:13:14 Result Notes None recorded. Problems Name Problem SNOMED Code Status Onset Date Resolution Date Notes Provider Name and Address Organization Details Recorded Time Threatened miscarriage 66624774 Active KYMBERLY [place], [place] - [facility] 6 16:22:06 Miscarriage without complication 82135154 Active KYMBERLY [place], [place] - [facility] 6 16:22:06 Miscarriage 35732386 Active Irlanda Pereira [facility]- Attn: Teja kacey,[address], [place], [address], [place] - [facility] 6 16:40:11 Problem Notes None recorded. Procedures Surgical History Date Name Laterality Status Provider Name and Address Organization Details Recorded Time Date of Last Pap Smear completed Justine Guerrero RN [place] - [facility] 11/27/2023 16:33:48 6 Depo Injection completed Marva Tang MA [place] - [facility] 016 11:15:34 6 Depo Injection completed KYMBERLY [place] - [facility] 016 16:30:47 Imaging Results None recorded. Procedure Notes None recorded. Medical Equipment None Reported. Allergies Allergen ID Allergen Name Allergen Category Reaction Reaction Severity Criticality Documentation Date Start Date Code Code System Note Provider Name and Address Organization Details Recorded Time 596277 Tylenol medicatio n other Not available Not available 09/16/2017 43345 3 RxNorm Not Available Not Available Not Available 865980 aspirin medicatio n Not available Not available Not available 11/24/2023 1191 RxNorm Not Available Not Available Not Available 75673 Ceclor medicatio n Not available Not available Not available 03/19/201609007 5 RxNorm Not Available Not Available Not Available Medications Name Sig Start Date Stop Date Status Note LastModified by Organization Details LastModified Time buspirone 5 mg tablet active Not Available Not Available No t Available prednisone 10 mg tablet 09/16 completed Not Available Not Available Not Available venlafaxine ER 75 mg capsule,ext ended release 24 hr 10/03 completed Not Available Not Available Not Available Vitamin B-6 25 mg tablet active Not Available Not Available Not Available clindamycin HCl 300 mg capsule 11/23 completed Not Available Not Available Not Available loperamide 2 mg capsule TK ONE C PO Q 4 H PRF LOOSE STOOL. DO NOT EXCEED 4 CS PER 24 HOURS 10/03 completed Not Available Not Available Not Available trazodone 50 mg tablet 10/03 completed Not Available Not Available Not Available cetirizine 10 mg tablet 09/16 completed Not Available Not Available Not Available azithromyci n 250 mg tablet TK 2 TS PO ON DAY 1, THEN TK 1 T PO D FOR 4 DAYS 11/23 completed Not Available Not Available Not Available ibuprofen 800 mg tablet 07/01 completed Not Available Not Available Not Available fluconazole 150 mg tablet TAKE 1 TABLET BY MOUTH ONCE AFTER COMPLETED ANTIBIOTI CS IF NECESSARY active Not Available Not Available No t Available benzonatate 200 mg capsule TAKE 1 CAPSULE BY MOUTH THREE TIMES DAILY FOR UP TO 14 DAYS NEEDED FOR COUGH 11/23 completed Not Available Not Available Not Available ranitidine 300 mg tablet 09/16 completed Not Available Not Available Not Available hydrocodone 5 mg-acetamin ophen 325 mg tablet 07/01 completed Not Available Not Available Not Available ondansetron HCl 8 mg tablet active Not Available Not Available Not Available phenazopyri dine 200 mg tablet TAKE 1 TABLET BY MOUTH THREE TIMES DAILY FOR 3 DAYS active Not Available Not Available No t Available ondansetron HCl 4 mg tablet TAKE 1 TABLET BY MOUTH EVERY 8 HOURS NEEDED FOR NAUSEA active Not Available Not Available No t Available prednisone 20 mg tablet TAKE 1 TABLET BY MOUTH TWICE DAILY FOR 5 DAYS 11/23 completed Not Available Not Available Not Available terconazole 0.8 % vaginal cream INSERT 1 APPLICATO RFUL VAGINALLY EVERY DAY AT BEDTIME FOR 3 DAYS active Not Available Not Available No t Available venlafaxine ER 150 mg capsule,ext ended release 24 hr TAKE 1 CAPSULE BY MOUTH DAILY 11/23 completed Not Available Not Available Not Available metronidazo le 500 mg tablet TAKE 1 TABLET BY MOUTH EVERY 12 HOURS FOR 7 DAYS active Not Available Not Available No t Available ciprofloxac in 250 mg tablet TAKE 1 TABLET BY MOUTH TWICE DAILY active Not Available Not Available No t Available levofloxaci n 250 mg tablet 11/23 completed Not Available Not Available Not Available prochlorper azine maleate 10 mg tablet TAKE 1 TABLET BY MOUTH EVERY 6 HOURS NEEDED NAUSEA 11/23 completed Not Available Not Available Not Available sulfamethox azole 800 mg-trimetho prim 160 mg tablet TAKE 1 TABLET BY MOUTH TWICE DAILY FOR 5 DAYS FOR UTI active Not Available Not Available No t Available ketorolac 10 mg tablet TAKE 1 TABLET BY MOUTH EVERY 6 HOURS NEEDED FOR MODERATE OR MORE SEVERE PAIN 11/23 completed Not Available Not Available Not Available amoxicillin 875 mg tablet 09/16 completed Not Available Not Available Not Available famotidine 20 mg tablet TAKE 1 TABLET BY MOUTH TWICE DAILY active Not Available Not Available No t Available lorazepam 0.5 mg tablet 11/23 completed Not Available Not Available Not Available trazodone 100 mg tablet 09/16 completed Not Available Not Available Not Available sodium citrate-cit soni acid 500 mg-334 mg/5 mL oral solution 11/23 completed Not Available Not Available Not Available doxycycline monohydrate 100 mg capsule 11/23 completed Not Available Not Available Not Available hyoscyamine 0.125 mg disintegrat ing tablet 11/23 completed Not Available Not Available Not Available pantoprazol e 40 mg tablet,jose manuel yed release TAKE 1 TABLET BY MOUTH DAILY active Not Available Not Available No t Available promethazin e 25 mg tablet 09/16 completed Not Available Not Available Not Available sertraline 25 mg tablet TAKE 1 TABLET BY MOUTH ONCE DAILY FOR A TOTAL OF 75 MG DAILY active Not Available Not Available No t Available omeprazole 20 mg capsule,del ayed release TAKE 1 TO 2 CAPSULES BY MOUTH DAILY active Not Available Not Available No t Available ibuprofen 600 mg tablet Take 1 tablet every 6 hours by oral route. 09/16 completed Not Available Not Available Not Available levofloxaci n 500 mg tablet TAKE 1 TABLET BY MOUTH DAILY FOR 6 DAYS active Not Available Not Available No t Available ondansetron 4 mg disintegrat ing tablet DISSOLVE 1 TABLET ON THE TONGUE EVERY 8 HOURS NEEDED FOR NAUSEA active Not Available Not Available No t Available fluticasone propionate 50 mcg/actuati on nasal spray,suspe nsion active Not Available Not Available Not Available sertraline 50 mg tablet TAKE 1 TABLET BY MOUTH ONCE DAILY FOR A TOTAL OF 75 MG DAILY active Not Available Not Available No t Available medroxyprog esterone 150 mg/mL intramuscul ar suspension Inject 1 mL every 3 months by intramusc ular route. 09/16 completed Not Available Not Available Not Available dicyclomine 10 mg capsule 10/03 completed Not Available Not Available Not Available metoclopram sangeeta 10 mg tablet TAKE 1 TABLET BY MOUTH FOUR TIMES DAILY NEEDED FOR NAUSEA -1ST LINE active Not Available Not Available No t Available amoxicillin 875 mg-potassiu m clavulanate 125 mg tablet 10/03 completed Not Available Not Available Not Available amoxicillin 500 mg-potassiu m clavulanate 125 mg tablet 09/16 completed Not Available Not Available Not Available buspirone 15 mg tablet 09/16 completed Not Available Not Available Not Available hydroxyzine pamoate 25 mg capsule TAKE 1 CAPSULE BY MOUTH THREE TIMES DAILY NEEDED FOR ANXIETY active Not Available Not Available No t Available neomycin-po lymyxin-hyd rocort 3.5 mg-10,000 unit/mL-1 % ear drops,susp 10/03 completed Not Available Not Available Not Available escitalopra m 10 mg tablet 10/03 completed Not Available Not Available Not Available escitalopra m 20 mg tablet 09/16 completed Not Available Not Available Not Available escitalopra m 5 mg tablet 10/03 completed Not Available Not Available Not Available mirtazapine 7.5 mg tablet active Not Available Not Available Not Available nitrofurant oin monohydrate /macrocryst als 100 mg capsule TAKE 1 CAPSULE BY MOUTH TWICE DAILY FOR 7 DAYS FOR UTI active Not Available Not Available No t Available albuterol sulfate (bulk) 10/03 completed Not Available Not Available Not Available vits 96-ferrous fumarate 27 mg iron-folic acid 800 mcg tablet active Not Available Not Available N ot Available Estarylla 0.25 mg-35 mcg tablet TK 1 T PO QD UTD 10/03 completed Not Available Not Available Not Available Vitals Date Recorded Body height Body mass index (BMI) Body weight Systolic blood pressure Diastolic blood pressure Provider Name and Address Organization Details Last Updated DateTime 09/16/2017 162.56 cm 22.4 kg/m2 81066.81 g 122 mm[Hg] 82 mm[Hg] Marium Patiño MA [facility] 8 10:26:21 Date Recorded Body height Body mass index (BMI) Body weight Systolic blood pressure Diastolic blood pressure Provider Name and Address Organization Details Last Updated DateTime 09/02/2018 162.56 cm 21.8 kg/m2 46713.37 g 118 mm[Hg] 80 mm[Hg] Marium Patiño MA [facility] 9 11:26:22 Date Recorded Body height Body mass index (BMI) Body weight Systolic blood pressure Diastolic blood pressure Provider Name and Address Organization Details Last Updated DateTime 04/13/2019 162.56 cm 19.9 kg/m2 85038 g 110 mm[Hg] 70 mm[Hg] Marium Patiño MA [facility] 9 15:18:16 Date Recorded Body height Body mass index (BMI) Body weight Provider Name and Address Organization Details Last Updated DateTime 02/22/2020 162.56 cm 19.7 kg/m2 20038.12 g Ghazal Tovar MA [facility] 02/22/2020 10:11:20 Date Recorded Body height Body mass index (BMI) Body weight Heart rate Respiratory rate Systolic blood pressure Diastolic blood pressure Provider Name and Address Organization Details Last Updated DateTime 4 162.56 cm 24.1 kg/m2 95353.7 3 g 89 /min 18 /min 128 mm[Hg] 81 mm[Hg] Aliya HERNANDEZ [facility] 4 14:25:37 Social History Question Answer Notes LastModified by Organizat ion Details LastModified Time Tobacco Smoking Status Never Smoker Marva [facility]MBELRY [facility] [place], [place] - [facility] 03/19/2016 14:23:25 What Was The Date Of Your Most Recent Tobacco Screening? 11/24/2023 [email or web address] Information not available 11/24/2023 Sex: Female Functional Status None recorded. Mental Status None recorded. Family History Nothing Reported Notes:none 11/24/23 Medical History Condition Response Other N High Blood Pressure N Breast Cancer N Thyroid Problems N Kidney or Bladder Problems N GI Problems N Depression Y Blood Clots N Lung Disease N Acne N Eating Disorder N Breast Problem N Anemia N Anesthesia Complications N Headaches/Migraines N Anxiety Disorder Y Diabetes N Ovarian Cancer N Muscle, Joint, or Bone Problems N Blood Transfusions N Seizures/Epilepsy N Polyps N Infertility N Acid Reflux (GERD) N Cancer N Abuse/Domestic Violence N Asthma N Endometriosis N High Cholesterol N Hepatitis N Liver Disease N Heart Disease N Pre-Eclampsia N Osteoporosis N Gynecological History Statement/Question Response Flow Moderate Frequency of Cycle (Q days) 5 Date of LMP 11/17/2019 Sexually Active? Y Menses Monthly Y STIs/STDs N Date of Last Pap Smear 11/24/2023 Duration of Flow (days) 5-7 Current Control Method None Age at Menarche 12 LMP Approximate Obstetrics History GPAL:G 1 P 0 0 1 0 Type Value Spontaneous 1 Living 0 Total 1 Past Encounters Encounter ID Performer Location Encounter Start Date Encounter Closed Date Diagnosis/Indication Diagnosis SNOMED-CT Code Diagnosis ICD10 Code Diagnosis Note [id number] Irlanda Pereira [facility] ([place] [address]) [address] [place] [address] 03/12/2016 16:30:44 03/14/2016 08:34:29 Threatened miscarriage 96945296 O20.0 test positive 201092288 Z32.01 [id number] Irlanda Pereira ALEXIA [facility] ([place] [address]) [address] [place] [address] 03/13/2016 15:22:37 03/14/2016 08:34:09 Miscarriage without complication 50783396 O03.9 [id number] Irlanda Pereira [facility] [place] ([place] [address]) [address] [place] [address] 03/19/2016 14:14:53 03/19/2016 16:52:59 Miscarriage without complication 85591630 O03.9 Contracept ion education 494755010 Z30.09 [id number] Irlanda Pereira [facility] ([facility]) [address] [facility] [place] [address] 04/03/2016 16:19:22 04/03/2016 16:57:50 Miscarriage 29944153 O03.9 Uses depot contraception 932378416 Z30.097 [id number] Irlanda Pereira [facility] ([facility]) [address] [facility] [place] [address] 07/01/2016 10:41:34 07/01/2016 13:50:55 Uses depot contraception 907553578 Z30.539 [id number] [place] [facility] ([facility]) [address] [facility] [place] [address] 09/16/2017 10:15:24 09/16/2017 11:18:53 Gynecologic examination [id number] Z01.419 Contraception care [id number] Z30.40 [id number] ANTONY Falcon 13 OB [address] [facility] [place] [address] 09/02/2018 11:17:15 09/02/2018 16:22:49 Possible [id number] Z32.00 [id number] ANTONY Falcon 13 OB [address] [facility] [place] [address] 04/13/2019 15:07:52 04/15/2019 10:45:19 Tampon retained in vagina [id number] Z18.89 No retained tampon. follow up as needed or at next annual. [id number] ANTONY Falcon 13 OB [address] [facility] [place] [address] 02/22/2020 10:09:33 02/23/2020 11:37:23 Vaginal discharge [id number] N89.8 Meds sent to pharmacy. Counseled on bv/yeast prevention and treatment. Will call office back if treatment does not help with symptoms. Pt verbalized understand ing. Contracept ion care management [id number] Z30.9 1. Reviewed all forms of control with patient including risk factors and side effects. 2. Counseled on STD transmissi on and prevention , condom use and prevention . 3. Pt would like to continue with OCP. Educated on correct use and side effects. Will send rx to pharmacy. 4. Follow up for med check in 12 months, sooner if needed. [id number] Malathi Antoine, [facility] 14 OB [address] [facility] [place] [address] 11/24/2023 14:00:52 11/27/2023 09:38:58 Gynecologic examination [id number] Z01.419 1. Counseled regarding prevention of STD's , condom use and prevention . 2. Counseled regarding contracept frank options, risk factors and side effects. 3. Advised avoidance of tobacco, alcohol, and drugs . 4. Counseled regarding folic acid supplement ation, calcium needs and prevention of osteoporos is . 5. BSE reviewed and recommende d. 6. Follow up in one year or sooner if needed. Vaginal discharge [id number] N89.8 Meds sent to pharmacy. Counseled on bv/yeast prevention and treatment. Will call office back if treatment does not help with symptoms. Pt verbalized understand ing. Health Concerns Section Related Observation LastModified by Organization Detai ls LastModified Time None Recorded Concern Status LastModified by Organization Details LastModified Time None Recorded Advance Directives Directive None Recorded Payers Encounter Date Sequence Insurance Name Policy Number Policy Nuñez Covered Member ID Nuñez Member ID Guarantor Name 09/16/2017 1 [facility] (MEDICAID HMO) [id number] Sowmya Velazquez [id number] Sowmya Velazquez 09/02/2018 1 [employer] [facility] [facility] (MEDICAID HMO) [id number] Sowmya Velazquez [id number] Sowmya Velazquez 04/13/2019 1 [facility] [facility] [facility] (MEDICAID HMO) [id number] Sowmya Velazquez [id number] Sowmya Velazquez 02/22/2020 1 [facility] [facility] [facility] (MEDICAID HMO) [id number] Sowmya Velazquez [id number] Sowmya Velazquez 11/24/2023 1 *SELF PAY* Lindsay Velazquez Notes Date Note Type Note Provider Name and Address Organization Details Recorded Time 09/16/2017 text/html Annual GYNReport ed bypatient.History:n o gynecologic complaints Menstrual cycle:Normal menses Urinary symptoms:No hematuria; No incontinence Vulva:No genital lesion Vagina:Normal vaginal discharge Breast:No breast pain; No breast lump; No nipple discharge Current Contraception:Wants to discuss contraceptive options Sexual complaints:No sexual complaints; No pain during intercourse; Normal libido Menopausal Symptoms:No menopausal symptoms; Normal vaginal lubrication Psychological symptoms:No depression; No anxiety; No PMDD Preventive measures:Encourage self breast examination; Encourage regular exercise; Encourage no tobacco use; Followed with Q3 year pap smear and high risk HPV typing ANTONY Falcon Attn: [address] [place], [address], [facility] 09/16/2017 10:45:50 09/02/2018 text/html Pt states her an d bf and trying to get . Last cycle was 3 weeks ago and regular. States she is having lower abdominal cramps with nausea and feels she may be . Would like serum hcg due to have past eptopic . ANTONY Falcon Attn: [address] [place], [address], [facility] - [facility] 09/02/2018 14:19:49 04/13/2019 text/html Here for tampon removal. Thinks it may have been in 2 days. ANTONY Falcon Attn: [address] [place], [address], [place] [facility] 04/13/2019 15:41:57 02/22/2020 text/html phone visit. pt states she is having uti symptoms, took otc test and was wnl. states urgency, burning, discharge is itchy, yellow in color, slight odor. denies new soaps, detergents or meds recently. states this started 1 week ago. would also like to start ocp, has been on in the past and no complications. ANTONY Falcon Attn: [address] [place], [address], [place] [facility] 02/22/2020 10:16:18 11/24/2023 text/html Annual GYNReport ed bypatient.Menstrual cycle:Normal menses Urinary symptoms:No hematuria; No incontinence Vulva:No genital lesion Vagina:White;Vagina l itching Breast:No breast pain; No breast lump; No nipple discharge Sexual complaints:No sexual complaints; No pain during intercourse; Normal libido Menopausal Symptoms:No menopausal symptoms; Normal vaginal lubrication Psychological symptoms:No depression; No anxiety; No PMDD Preventive measures:Encourage self breast examination; Encourage regular exercise; Encourage no tobacco use; Encourage regular mammograms starting age 40; Followed with Q3 year pap smear and high risk HPV typing 28 yo fe here for annual wwe- last pap wnl 09/16/17- hx DANIEL Falcon-BASIL Attn: [address] [place], [address], [facility] - [facility] 11/24/2023 14:39:56 OBGyn Episode No OBEpisode recorded.
--- OUTSIDE RECORDS SUMMARY | 2024-11-01 16:37 | XMS_ITS | Clinical Summary ---
Author Organization [facility] Address [address] [place] [address] Phone Care Team Providers Care [employer] Clerk Name Role Phone David Jacobo MD Primary Care Provider Allergies Active Allergy Reactions Criticality Noted Date Comments Aspirin Vomiting 03/08/2016 Sulfamethoxazole-Trimeth oprim Other (see Comments) 08/16/2024 Pt states that this medication makes her feel like she's on acid. Cefaclor Unknown 02/25/2016 Cephalosporins Other (see Comments) 08/16/2024 Pt states that she has had severe reactions to sporins in the past. Nitrofurantoin Other (see Comments) 04/08/2024 Acetaminophen Other (see Comments) 03/08/2016 HX OF LIVER DAMAGE Medications albuterol (PROVENTIL HFA, VENTOLIN HFA) 108 (90 Base) MCG/ACT Aerosol Solution take 2 Puffs by inhalation every 6 hours as needed for Wheezing. 1 Inhaler 7 Active sertraline (ZOLOFT) 50 MG Tablet Take 50 mg by mouth daily. Active prochlorperazine (COMPAZINE) 10 MG Tablet Take 1 Tablet by mouth every 6 hours as needed for Nausea - 1st line. 30 Tablet 4 Active ketorolac (TORADOL) 10 MG Tablet Take 1 Tablet by mouth every 6 hours as needed for Moderate or more severe pain. 20 Tablet 4 Active Hyoscyamine Sulfate 0.125 MG TABLET DISPERSIBLE 4 Active haloperidol (HALDOL) 2 MG Tablet Take 1 Tablet by mouth in the morning and at bedtime. 20 Tablet 4 Active hydrOXYzine (VISTARIL) 25 MG Capsule Take 1 Capsule by mouth 3 times daily as needed for Anxiety. 20 Capsule 4 Active metoclopramide (REGLAN) 10 MG Tablet Take 1 Tablet by mouth 4 times daily as needed for Nausea - 1st line. 10 Tablet 4 Active pantoprazole (PROTONIX) 40 MG Tablet Delayed Response Take 1 Tablet by mouth daily. 30 Tablet 4 Active ondansetron (ZOFRAN) 4 MG TabletIndication s:Nausea and Vomiting Take 1 Tablet by mouth every 8 hours as needed for Nausea - 1st line. Indications: Nausea and Vomiting 10 Tablet 4 Active dicyclomine (BENTYL) 20 MG Tablet Take 1 Tablet by mouth every 6 hours. 30 Tablet 4 Active ondansetron (ZOFRAN-ODT) 4 MG TABLET DISPERSIBLEIndic ations:Nausea and Vomiting Take 1 Tablet by mouth every 8 hours as needed for Nausea - 1st line. Indications: Nausea and Vomiting 10 Tablet 4 Active ondansetron (ZOFRAN-ODT) 4 MG TABLET DISPERSIBLE Take 1 Tablet by mouth every 8 hours as needed for Nausea - 1st line. 10 Tablet 5 Active ondansetron (ZOFRAN-ODT) 4 MG TABLET DISPERSIBLE Take 1 Tablet by mouth every 8 hours as needed for Nausea - 1st line. 10 Tablet 5 Active Active Problems Problem Noted Date Diagnosed Date Depression 05/04/2023 Asthma 05/04/2023 Anxiety 05/04/2023 IBS (irritable bowel syndrome) 05/04/2023 Marijuana abuse 05/04/2023 Resolved Problems Problem Noted Date Diagnosed Date Resolved Date Intractable nausea and vomiting 05/04/2023 05/05/2023 Encounters Date Type Department Care Team Description 09/22/2024 5:16 AM CLOTH CHECKER - 09/22/2024 9:25 AM CLOTH CHECKER Emergency [facility] Emergency [address] [place] [address] Collin Leon MD Flu-like symptoms Discharge Disposition: Discharged to home or Selfcare 09/21/2024 9:48 AM CLOTH CHECKER - 09/21/2024 11:17 AM [facility] Emergency [facility] Emergency [address] [place] [address] Joaquin Barnard, PAC Viral URI Discharge Disposition: Discharged to home or Selfcare 09/21/2024 Travel 08/29/2024 7:14 AM CLOTH CHECKER - 08/29/2024 9:48 AM [facility] Emergency [facility] Emergency [address] [place] [address] Chika Wilcox MD Sore throat Discharge Disposition: Discharged to home or Selfcare 08/29/2024 Travel 08/16/2024 12:13 PM CLOTH CHECKER - 08/16/2024 4:01 PM [facility] Emergency [facility] Emergency [address] [place] [address] Lindsey Almonte, LEANDRO Vaginitis Discharge Disposition: Discharged to home or Selfcare 08/16/2024 Travel from Last 3 Months Social History Tobacco Use Types Packs/Day Years Used Date Smoking Tobacco: Former Cigarettes Smokeless Tobacco: Never Tobacco Cessation:Counseling Given: Not Answered Alcohol Use Standard Drinks/Week Comments Not Currently 0 (1 standard drink = 0.6 oz pur e alcohol) monthly mix drinks Comments No Sex and Gender Information Value Date Recorded Sex Assigned at Not on file Legal Sex Female 12:02 AM CDT Gender Identity Not on file Sexual Orientation Not on file Last Filed Vital Signs Vital Sign Reading Time Taken Comments Blood Pressure 124/70 09/22/2024 7:15 AM CLOTH CHECKER Pulse 138 09/22/2024 9:00 AM CLOTH CHECKER Temperature 36.7 C (98 F) 09/22/2024 9:23 AM CLOTH CHECKER Respiratory Rate 18 09/22/2024 9:15 AM CLOTH CHECKER Oxygen Saturation 95% 09/22/2024 9:15 AM CLOTH CHECKER Inhaled Oxygen Concentration - - Weight 77.1 kg (170 lb) 09/22/2024 5:23 AM CLOTH CHECKER Height 162.6 cm (5' 4 ) 09/22/2024 5:23 AM CLOTH CHECKER Body Mass Index 29.18 09/22/2024 5:23 AM CLOTH CHECKER Plan of Treatment Health Maintenance Due Date Last Done Comments Hepatitis C Virus (HCV) Screening 1994 TdaP Immunization 1994 Hepatitis B Immunization (1 of 3 - 19+ 3-dose series) 2013 Pneumococcal Immunization Combined (1 of 2 - PCV) 2013 Pap Smear 2015 Cervical Cancer Screening (CCS) 02/13/2024 HPV/Cotest 02/13/2024 Influenza Immunization (#1) 2024 SARS-COV-2 Immunization (3 - 2023- season) 2024 01/03/2021, 12/13/2020 Respiratory Syncytial Virus (RSV) Immunization (Adult) (1 - 1-dose 75+ series) 2069 Meningococcal Immunization (ACWY) Aged Out No longer eligible b ased on patient's age to complete this topic Rotavirus Immunization Aged Out No lo nger eligible based on patient's age to complete this topic Procedures Procedure Name Priority Date/Time Associated Diagnosis Comments XR CHEST 2 VIEWS STAT 09/22/2024 6:45 AM CLOTH CHECKER GOLD TOP TUBE STAT 09/21/2024 10:00 AM CLOTH CHECKER BLUE TOP TUBE STAT 09/21/2024 10:00 AM CLOTH CHECKER CBC WITH AUTO DIFFERENTIAL STAT 09/21/2024 10:00 AM CLOTH CHECKER EXTRA TUBES STAT 09/21/2024 10:00 AM CLOTH CHECKER CMP (COMPREHENSIVE METABOLIC PANEL) STAT 09/21/2024 10:00 AM CLOTH CHECKER COMPLETE BLOOD COUNT (CBC) WITH DIFF STAT 09/21/2024 10:00 AM CLOTH CHECKER RSV,SARS-COV-2,INFLUE NZA A&B BY PCR STAT 09/21/2024 10:00 AM CLOTH CHECKER EKG 12 LEAD STAT 09/21/2024 9:56 AM CLOTH CHECKER EKG SCAN 09/21/2024 12:00 AM CLOTH CHECKER CBC WITH AUTO DIFFERENTIAL STAT 08/29/2024 8:14 AM CLOTH CHECKER TROPONIN I, HIGH SENSITIVITY (HSTRP) STAT 08/29/2024 8:14 AM CLOTH CHECKER CMP (COMPREHENSIVE METABOLIC PANEL) STAT 08/29/2024 8:14 AM CLOTH CHECKER COMPLETE BLOOD COUNT (CBC) WITH DIFF STAT 08/29/2024 8:14 AM CLOTH CHECKER XR CHEST 2 VIEWS STAT 08/29/2024 8:06 AM CLOTH CHECKER EKG 12 LEAD STAT 08/29/2024 7:35 AM CLOTH CHECKER GROUP A STREP BY PCR STAT 08/29/2024 7:26 AM CLOTH CHECKER RSV,SARS-COV-2,INFLUE NZA A&B BY PCR STAT 08/29/2024 7:26 AM CLOTH CHECKER EKG SCAN 08/29/2024 12:00 AM CLOTH CHECKER XR FOOT 3 OR MORE VIEWS RIGHT STAT 08/16/2024 1:52 PM CLOTH CHECKER POCT URINE HCG () STAT 08/16/2024 1:33 PM CLOTH CHECKER VAGINITIS SCREEN, MOLECULAR STAT 08/16/2024 1:23 PM CLOTH CHECKER CHLAMYDIA & GC DNA PROBE STAT 08/16/2024 1:23 PM CLOTH CHECKER URINALYSIS REFLEX IF INDICATED BY ABNORMAL RESULTS STAT 08/16/2024 1:23 PM CLOTH CHECKER CULTURE, URINE STAT 08/16/2024 1:23 PM CLOTH CHECKER CHLAMYDIA & GC DNA PROBE > 12 STAT 08/16/2024 1:23 PM CLOTH CHECKER from Last 3 Months Results * XR CHEST 2 VIEWS (09/22/2024 6:45 AM CLOTH CHECKER) Only the most recent of2 resultswithin the time period is included. Anatomical Region Laterality Modality Chest N/A Digital Radiogra phy 09/22/2024 6:56 AM CLOTH CHECKER Impressions 09/22/2024 6:58 AM CLOTH CHECKER IMPRESSION: Peribronchial inflammatory changes without focal consolidations. Narrative 09/22/2024 6:58 AM CLOTH CHECKER EXAM DESCRIPTION: XR CHEST 2 VIEWS REASON FOR STUDY: SOB, cough today TECHNIQUE: Two views COMPARISON: 08/29/2024 FINDINGS: Heart size and vascularity appear normal. Aortic arch well-defined on the left. Lungs are expanded without consolidation, effusion or pneumothorax. Interstitial densities and peribronchial thickening suggesting inflammatory changes. THIS IS AN ELECTRONICALLY VERIFIED FINAL REPORT 09/22/2024 6:56 AM - Electronically signed by Valdemar Verduzco M.D. RB: RB Report ID: [id number] Reading Location: [id number] Procedure Note Valdemar Verduzco MD - 09/22/2024 EXAM DESCRIPTION: XR CHEST 2 VIEWS REASON FOR STUDY: SOB, cough today TECHNIQUE: Two views COMPARISON: 08/29/2024 FINDINGS: Heart size and vascularity appear normal. Aortic arch well-defined on the left. Lungs are expanded without consolidation, effusion or pneumothorax. Interstitial densities and peribronchial thickening suggesting inflammatory changes. THIS IS AN ELECTRONICALLY VERIFIED FINAL REPORT 09/22/2024 6:56 AM - Electronically signed by Valdemar Verduzco M.D. RB: RB Report ID: [id number] Reading Location: [id number] IMPRESSION: Peribronchial inflammatory changes without focal consolidations. Collin Leon MD [facility] DIAGNOSTIC ORDERABLES Final Result * RSV,SARS-COV-2,INFLUENZA A&B BY PCR (09/21/2024 10:00 AM CLOTH CHECKER) Only the most recent of2 resultswithin the time period is included. FLU A Negative Negative, Error 09/21/2024 11:02 AM CLOTH CHECKER [facility] FLU B Negative Negative 09/21/2024 11:02 AM CLOTH CHECKER [facility] RESP SYNC VIRUS Negative Negative 11:02 AM CLOTH CHECKER [facility] SARSCOV2 NOT DETECTED (Reference Range for this test is Not Detected) 09/21/2024 11:02 AM CLOTH CHECKER [facility] Comment:This test was perfor med by a Reverse Electronic Engraver PCR Method. Swab NASOPHARYNGEAL SWAB / Unknown Non-Phlebotomy Collection / Unknown 09/21/2024 10:00 AM CLOTH CHECKER 09/21/2024 10:08 AM CLOTH CHECKER Joaquin Barnard [facility] MICROBIOLOGY - GENERA L ORDERABLES Final Result Performing Organization Address City/[facility] Co de Phone Number [facility] [address] [place] [address] * Gold Top Tube (09/21/2024 10:00 AM CLOTH CHECKER) Blood No Phlebotomy Charged / Unknown 09/21/2024 10:00 AM CLOTH CHECKER 09/21/2024 10:11 AM CLOTH CHECKER Joaquin Barnard [facility] CHEMISTRY ORDERABLES Final Result Performing Organization Address City/[facility] Co de Phone Number [facility] [address] [place] [address] * Blue Top Tube (09/21/2024 10:00 AM CLOTH CHECKER) Blood No Phlebotomy Charged / Unknown 09/21/2024 10:00 AM CLOTH CHECKER 09/21/2024 10:11 AM CLOTH CHECKER Joaquin Barnard [facility] HEMATOLOGY ORDERABLES Final Result Performing Organization Address City/[facility] Co de Phone Number [facility] [address] [place] [address] * (ABNORMAL) CBC with Auto Differential (09/21/2024 10:00 AM CLOTH CHECKER) Only the most recent of2 resultswithin the time period is included. WBC 6.19 4.00 - 12.00 10(3)/mcL 09/21/2024 10:36 AM [facility] RBC 4.56 3.80 - 5.30 10(6)/[facility] 09/21/2024 10:[address] [facility] HEMOGLOBIN (HGB) 13.6 12.0 - 15.8 g/dL 09/21/2024 10:[address] [facility] HEMATOCRIT (HCT) 39.7 36.0 - 47.0 % 09/21/2024 10:[address] [facility] MCV 87.1 82.0 - 96.0 fL 09/21/2024 10:[address] [facility] MCH 29.8 26.0 - 34.0 pg 09/21/2024 10:[address] [facility] MCHC 34.3 31.0 - 36.0 g/dL 09/21/2024 10:[address] [facility] PLATELET COUNT 200 140 - 440 10(3)/[facility] 09/21/2024 10:[address] [facility] RDW 13.2 11.8 - 15.5 % 09/21/2024 10:[address] [facility] MPV 10.6 9.7 - 12.4 fL 09/21/2024 10:[address] [facility] NEUTROPHILS 72.9 47.0 - 73.0 % 09/21/2024 10:[address] [facility] LYMPHOCYTES 13.2(L) 18.0 - 42.0 % 09/21/2024 10:[address] [facility] MONOCYTES 12.1(H) 4.0 - 12.0 % 09/21/2024 10:[address] [facility] EOSINOPHILS 1.6 0.0 - 5.0 % 09/21/2024 10:[address] [facility] BASOPHILS 0.2 0.0 - 1.0 % 09/21/2024 10:[address] [facility] ABSOLUTE NEUTROPHILS 4.51 1.60 - 7.70 10(3)/[facility] 09/21/2024 10:[address] [facility] ABSOLUTE LYMPHOCYTES 0.82(L) 1.30 - 3.20 10(3)/[facility] 09/21/2024 10:36 AM CLOTH CHECKER [facility] ABSOLUTE MONOCYTES 0.75 0.20 - 1.00 10(3)/[facility] 09/21/2024 10:[address] [facility] ABSOLUTE EOSINOPHIL 0.10 0.00 - 0.40 10(3)/[facility] 09/21/2024 10:[address] [facility] ABSOLUTE BASOPHILS 0.01 0.00 - 0.10 10(3)/[facility] 09/21/2024 10:[address] [facility] NRBC PER 100 WBC 0 09/21/19 10:[address] [facility] Blood Venipuncture / Unknown 09/21/2024 10:00 AM CLOTH CHECKER 09/21/2024 10:10 AM [facility] Joaquin Barnard PAC HEMATOLOGY ORDERABLES Final Result [facility] [address] [place] [address] * (ABNORMAL) CMP (09/21/2024 10:00 AM [facility]) Only the most recent of2 resultswithin the time period is included. SODIUM 140 136 - 145 mmol/L 09/21/2024 10:[address] [facility] POTASSIUM 3.9 3.5 - 5.1 mmol/L 09/21/2024 10:[address] [facility] CHLORIDE 110(H) 98 - 107 mmol/L 09/21/2024 10:[address] [facility] CO2, VENOUS 21(L) 22 - 30 mmol/L 09/21/2024 10:[address] [facility] ANION GAP 12.9 <18.0 mmol/L 09/21/2024 10:[address] [facility] GLUCOSE 114(H) 70 - 99 mg/dL 09/21/2024 10:[address] [facility] BUN 12 5 - 18 mg/dL 09/21/2024 10:[address] [facility] CREATININE, BLOOD 0.87 0.60 - 1.00 mg/dL 09/21/2024 10:[address] [facility] BUN/CREATININE RATIO 14 12 - 20 ratio 09/21/2024 10:[address] [facility] TOTAL PROTEIN 7.8 6.0 - 8.0 g/dL 09/21/2024 10:[address] [facility] ALBUMIN 4.6 3.5 - 5.0 g/dL 09/21/2024 10:[address] [facility] A/G RATIO 1.4 1.0 - 2.2 09/21/2024 10:[address] [facility] CALCIUM 9.5 8.7 - 10.5 mg/dL 09/21/2024 10:[address] [facility] T BILI 0.4 0.2 - 1.2 mg/dL 09/21/2024 10:[address] [facility] SGOT (AST) 31 6 - 42 U/L 09/21/2024 10:[address] [facility] SGPT (ALT) 26 6 - 55 U/L 09/21/2024 10:[address] [facility] ALKALINE PHOSPHATASE 56 40 - 150 U/L 09/21/2024 10:[address] [facility] GFR, ESTIMATED >60 >=60 09/21/2024 10:[address] [facility] Comment: Creatinine Clearance is the preferred criteria for selecting drug dose adjustments in renally impaired patients. The GFR is provided as additional pertinent clinical information. GFR is reported in mL/min/1.73 sq m. Calculation based on the Chronic Kidney Disease Epidemiology Collaboration (CKD- EPI) equation refit without adjustment for race. GFR, EST. >60 >=60 025 10:33 AM CLOTH CHECKER [facility] GFR, EST. NONAFRICAN >60 >=60 09/21/2024 10:33 AM CLOTH CHECKER [facility] Blood Venipuncture / Unknown 09/21/2024 10:00 AM CLOTH CHECKER 09/21/2024 10:10 AM CLOTH CHECKER Joaquin Barnard PAC CHEMISTRY ORDERABLES Final Result [facility] [address] [place] [address] * EKG 12 LEAD (09/21/2024 9:56 AM CLOTH CHECKER) Only the most recent of2 resultswithin the time period is included. Ventricular Rate 103 BPM EXTERNAL EKG Atrial Rate 103 BPM EXTERNAL EKG P-R Interval 128 ms EXTERNAL EKG QRS Duration 80 ms EXTERNAL EKG Q-T Duration 340 ms EXTERNAL EKG QTC CALCULATION 445 ms EXTERNAL EKG P [place] 37 degrees EXTERNAL EKG R [place] 45 degrees EXTERNAL EKG T [place] 36 degrees EXTERNAL EKG 09/21/2024 9:56 AM CLOTH CHECKER Impressions EXTERNAL EKG - 09/21/2024 3:02 PM CLOTH CHECKER Sinus tachycardia Otherwise normal ECG When compared with ECG of 29-AUG-2024 07:35, Vent. rate has increased BY 35 BPM Confirmed by Jackson Sanabria ([id number]) on 09/21/2024 3:02:17 PM Narrative Procedure Note Jackson Sanabria MD - 09/21/2024 IMPRESSION: Sinus tachycardia Otherwise normal ECG When compared with ECG of 29-AUG-2024 07:35, Vent. rate has increased BY 35 BPM Confirmed by Jackson Sanabria ([id number]) on 09/21/2024 3:02:17 PM Ruddy Zavala DO IMG ECG ORDERABLES Apryl l Result EXTERNAL EKG * EKG SCAN (09/21/2024 12:00 AM CLOTH CHECKER) Only the most recent of2 resultswithin the time period is included. 09/21/2024 us Provider Scan IMG ECG ORDERABLES Final Result RESULTING AGENCY * TROPONIN I, HIGH SENSITIVITY (HSTRP) (08/29/2024 8:14 AM CLOTH CHECKER) Pathologist [facility] TROPONIN I, HIGH SENSITIVITY- [place] <3 <=14 ng/L 08/29/2024 8:49 AM CLOTH CHECKER [facility] Comment: High-sensitivity troponin I results are reported in ng/L making the result appear to be 1,000 times higher than the contemporary troponin I value which is reported in ng/ml. Results from [place]. Blood Venipuncture / Unknown 08/29/2024 8:14 AM CLOTH CHECKER 08/29/2024 8:21 AM CLOTH CHECKER Chika Wilcox MD CHEMISTRY ORDERABLES Final Re sult Performing Organization Address City/[facility]/ZIP Co de Phone Number [facility] [address] [place] [address] * GROUP A STREP BY PCR (08/29/2024 7:26 AM CLOTH CHECKER) Pathologist [facility] GROUP A STREP BY PCR NOT DETECTED NOT DETECTED 08/29/2024 8:00 AM CLOTH CHECKER [facility] Swab SPECIMEN FROM THROAT / Unknown Non-Phlebotomy Collection / Unknown 08/29/2024 7:26 AM CLOTH CHECKER 08/29/2024 7:32 AM CLOTH CHECKER Chika Wilcox MD MICROBIOLOGY - GENERAL ORDERA BLES Final Result [facility] [address] [place] [address] * XR FOOT 3 OR MORE VIEWS RIGHT (08/16/2024 1:52 PM CLOTH CHECKER) Anatomical Region Laterality Modality LOWER EXTREMITY, foot Right Digital Ra diography 08/16/2024 2:29 PM CLOTH CHECKER Impressions 08/16/2024 2:32 PM CLOTH CHECKER IMPRESSION: No acute osseous abnormality of the right foot. No obvious radiopaque foreign body or soft tissue gas. If symptoms persist then follow-up study recommended. Narrative 08/16/2024 2:32 PM CLOTH CHECKER EXAM DESCRIPTION: XR FOOT 3 OR MORE VIEWS RIGHT REASON FOR STUDY: r/o foreign body heel, tender area with swelling and small knot to lateral calcaneous/ plantar surface of right edge of foot x 1 day- no injury TECHNIQUE: Three views COMPARISON: None FINDINGS: No acute fracture or dislocation of the right foot. No significant bony degenerative changes of the right foot. No obvious radiopaque foreign body or soft tissue gas at the patient's site of clinical abnormality. Some cutaneous thickening at this site may be present. THIS IS AN ELECTRONICALLY VERIFIED FINAL REPORT 08/16/2024 2:29 PM - Electronically signed by Kurt Madison M.D. JS: [email or web address] Report ID: [id number] Reading Location: [id number] Procedure Note Kurt Madison, DO - 08/16/2024 EXAM DESCRIPTION: XR FOOT 3 OR MORE VIEWS RIGHT REASON FOR STUDY: r/o foreign body heel, tender area with swelling and small knot to lateral calcaneous/ plantar surface of right edge of foot x 1 day- no injury TECHNIQUE: Three views COMPARISON: None FINDINGS: No acute fracture or dislocation of the right foot. No significant bony degenerative changes of the right foot. No obvious radiopaque foreign body or soft tissue gas at the patient's site of clinical abnormality. Some cutaneous thickening at this site may be present. THIS IS AN ELECTRONICALLY VERIFIED FINAL REPORT 08/16/2024 2:29 PM - Electronically signed by Kurt Madison M.D. JS: [email or web address] Report ID: [id number] Reading Location: [place] [id number] IMPRESSION: No acute osseous abnormality of the right foot. No obvious radiopaque foreign body or soft tissue gas. If symptoms persist then follow-up study recommended. Lindsey Browne Page PAC IMG DIAGNOSTIC ORDERABLES Fi nal Result * POCT Urine HCG () (08/16/2024 1:33 PM CLOTH CHECKER) POC URINE Negative POC URINE CONTROL Medical Staff Manager Pass Urine 08/16/2024 1:33 PM CLOTH CHECKER Lindsey Browne Page PAC POINT OF CARE TESTING (MANUA L) Final Result * CHLAMYDIA & GC DNA PROBE > 12 (08/16/2024 1:23 PM CLOTH CHECKER) CHLAMYDIA DNA NEGATIVE NEGATIVE 08/17/2024 2:16 AM CLOTH CHECKER [facility] Comment: Presumed negative for C. trachomatis. A negative result does not preclude C. trachomatis infection because results are dependent on adequate specimen collection, absence of inhibitors, and sufficient DNA to be detected. This test was performed using DIAZ 5800 Real Time PCR. GC DNA NEGATIVE NEGATIVE 08/17/2024 2:16 AM CLOTH CHECKER [facility] Comment: Presumed negative for N. gonorrhoeae. A negative result does not preclude N. gonorrhoeae infection because results are dependent on adequate specimen collection, absence of inhibitors, and sufficient DNA to be detected. This test was performed using DIAZ 5800 Real Time PCR. Other URINE / Unknown Non-Phlebotomy Collection / Unknown 08/16/2024 1:23 PM CLOTH CHECKER 08/16/2024 1:31 PM CLOTH CHECKER Lindsey Browne Page PAC MICROBIOLOGY - GENERAL ORDER AMANDA Final Result [facility] [address] [place] [address], [place] * (ABNORMAL) URINALYSIS REFLEX IF INDICATED BY ABNORMAL RESULTS (08/16/2024 1:23 PM CLOTH CHECKER) SPECIFIC GRAVITY 1.005 1.003 - 1.030 08/16/2024 2:00 PM CLOTH CHECKER [facility] URINE PH 7.0 5.0 - 9.0 08/16/2024 2:00 PM CLOTH CHECKER [facility] WBC ESTERASE 25 /ul(A) Negative 08/16/2024 2:[address] [facility] NITRITE Negative Negative 08/16/2024 2:[address] [facility] PROTEIN, RANDOM URINE 30 mg/dL(A) Negative 08/16/2024 2:[address] [facility] URINE GLUCOSE, QUAL Negative Negative 08/16/2024 2:[address] [facility] URINE KETONES Negative Negative 08/16/2024 2:00 PM CLOTH CHECKER [facility] UROBILINOGEN Normal Normal mg/dL 08/16/2024 2:[address] [facility] URINE BLOOD Negative Negative gina/ul 08/16/2024 2:[address] [facility] URINALYSIS COLOR Yellow 08/16/20 2:[address] [facility] URINALYSIS CLARITY Slightly Cloudy 08/16/2024 2:[address] [facility] WBC (Urine) 6-10(A) Negative, 0-5 /hpf 08/16/2024 2:[address] [facility] URINE RBC'S 0-2 Negative, 0-2 /hpf 08/16/2024 2:[address] [facility] EPITHELIAL CELLS Large amount squamous /lpf 08/16/2024 2:[address] [facility] BACTERIA, URINE Many(A) Negative /hpf 08/16/2024 2:[address] [facility] Urine URINE SPECIMEN COLLECTION, CLEAN CATCH / Unknown Non-Phlebotomy Collection / Unknown 08/16/2024 1:23 PM CLOTH CHECKER 08/16/2024 1:28 PM CLOTH CHECKER Lindsey Almonte PAC URINE ORDERABLES Final Resul t [facility] [address] [place] [address] * (ABNORMAL) Culture, Vaginitis Screen (For Gardnerella, Trichomonas, and Matilda) (08/16/2024 1:23 PM CLOTH CHECKER) TRICHOMONAS NOT DETECTED NOT DETECTED 08/17/2024 4:23 AM CLOTH CHECKER [facility] BACTERIAL VAGINOSIS DETECTED(A) NOT DETECTED 08/17/2024 4:23 AM CLOTH CHECKER [facility] MATILDA NOT DETECTED NOT DETECTED 08/17/2024 4:23 AM CLOTH CHECKER [facility] Comment: Matilda group Not detected with the following possible Matilda species: Matilda albicans and/or Matilda tropicalis and/or Matilda parapsilosis and/or Matilda dubliniensis MATILDA GLABRATA NOT DETECTED NOT DETECTED 08/17/2024 4:23 AM CLOTH CHECKER [facility] MATILDA KRUSEI NOT DETECTED NOT DETECTED 08/17/2024 4:23 AM CLOTH CHECKER [facility] Other Non-Phlebotomy Collection / Unknown 08/16/2024 1:23 PM CLOTH CHECKER 08/16/2024 1:31 PM CLOTH CHECKER Lindsey Almonte [place] [facility] MICROBIOLOGY - GENERAL ORDER AMANDA Final Result [facility] [address] [place] [address], [place] * Culture, Urine (08/16/2024 1:23 PM CLOTH CHECKER) CULTURE RESULTS Mixed Growth or 3 or More Organisms, Probable Collection Contamination, Suggest Repeat 08/17/2024 6:22 PM CLOTH CHECKER [facility] Urine URINE SPECIMEN COLLECTION, CLEAN CATCH / Unknown Non-Phlebotomy Collection / Unknown 08/16/2024 1:23 PM CLOTH CHECKER 08/16/2024 1:28 PM CLOTH CHECKER us Lindsey [facility] MICROBIOLOGY - GENERAL ORDER AMANDA Final Result [facility] [address] [place] [address], [place] from Last 3 Months Advance Directives * Full Code (Latest Code Status on File) Date Activated Date Inactivated Comments 05/04/2023 7:56 PM 05/05/2023 6:21 PM CPR-Full Ayan atment: FULL ARREST: Attempt Resuscitation/CPR wit intubation and mechanical ventilation. PRE-ARREST: Use entire range of life support measures to stabilize the patient. Care Teams [employer] Clerk Relationship Specialty Start Date End Date David Jacobo MD [address] [place] [address] PCP - General Pediatrics 02/25/16
== END 2024-11-01 14:15 | disposition home or self-care (01) ==
LOC: CHSIMG 14:19
PROVIDERS: PCP Family Medicine; Visit Provider Family Medicine
DX: M89.8X1 Other specified disorders of bone, shoulder (principal)
CPT/HCPCS: 71046